=== PATIENT | male | born 1985 | race African-American/Black ===

== ENCOUNTER 2017-09-11 10:42 | Emergency (ER) | payer MEDICAID ==
[~2017-09-11] VITALS: Ht 185.4 cm; Wt 64.7 kg
[2017-09-11 10:46] VITALS: BP 99/59
== END 2017-09-11 12:13 | disposition home or self-care (01) ==
LOC: ED 12:07
DX: S01.112D Laceration without foreign body of left eyelid and periocular area, subsequent encounter (principal); X58.XXXD Exposure to other specified factors, subsequent encounter
CPT/HCPCS: 99282

== ENCOUNTER 2018-06-02 01:09 | Emergency (ER) | payer MEDICAID ==
[~2018-06-02] VITALS: Ht 185.4 cm; Wt 75.0 kg
[2018-06-02 01:13] VITALS: BP 103/69
== END 2018-06-02 01:50 | disposition left against medical advice (07) ==
LOC: ED 01:44
DX: F41.1 Generalized anxiety disorder (principal); Z72.9 Problem related to lifestyle, unspecified
CPT/HCPCS: 93005; 99283

== ENCOUNTER 2019-02-08 20:25 | Emergency (ER) | payer MEDICAID ==
--- NOTE | 2019-02-08 20:42 | NUR ---
PT CALLED BACK FOR TRIAGE. NILx1.
--- NOTE | 2019-02-08 20:58 | NUR ---
PT CALLED BACK FOR TRIAGE. NILx2.
--- NOTE | 2019-02-08 21:17 | NUR ---
PT CALLED BACK FOR TRIAGE. NILx3.
== END 2019-02-08 21:19 | disposition left against medical advice (07) ==
LOC: ED 21:13
DX: S05.92XA Unspecified injury of left eye and orbit, initial encounter (principal); X58.XXXA Exposure to other specified factors, initial encounter; Y93.89 Activity, other specified; Y92.89 Other specified places as the place of occurrence of the external cause; Y99.8 Other external cause status; Z53.21 Procedure and treatment not carried out due to patient leaving prior to being seen by health care provider